=== PATIENT | male | born 1975 | race African-American/Black ===

== ENCOUNTER 2023-03-14 04:57 | Emergency (ER) | payer MEDICAID ==
[~2023-03-14] VITALS: Ht 195.6 cm; Wt 111.1 kg
[2023-03-14 05:00] VITALS: BP_SYST 126; PULSE 88; RESP 18; TEMP 98.4; O2SAT 98
== END 2023-03-14 05:18 | disposition home or self-care (01) ==
LOC: SED 04:57
DX: Z00.8 Encounter for other general examination (principal); I10 Essential (primary) hypertension; Z79.899 Other long term (current) drug therapy
CPT/HCPCS: 99283